=== PATIENT | male | born 1955 | race Caucasian/White ===

== ENCOUNTER 2021-07-17 12:47 | Inpatient (IN) ==
[2021-07-17 13:43] LABS: Basophils % 0.4 % (0.0-0.8); Eosinophils # 0.1 10*3/uL (0.0-0.87); Eosinophils % 1.8 % (0.00-10.9); Hematocrit 39.8 VOL% (42.0-52.0); Hemoglobin 13.1 GM/DL (14.0-18.0); Immature Granulocytes % 0.7 %; Immature Granulocytes Absolute 0.05 #; Lymphocytes # 1.8 10*3/uL (1.4-4.0); Mean Corpuscular HGB Conc 32.9 GM/DL (32-36); Mean Corpuscular Volume 87.1 FL (87-102); Mean Platelet Volume 9.9 FL (9.6-12.0); Monocytes # 0.5 10*3/uL (0.11-0.8); Monocytes % 7.1 % (1.7-12.7); Platelet Count 232 T/CUMM (130-400); Red Blood Count 4.57 MC/CUMM (3.8-5.5); Red Cell Distribution Width 12.5 % (9.3-17.3); White Blood Count 6.8 T/CUMM (4-12)
[2021-07-17 13:52] LABS: PT Patient Result 11.4 SECS (10.5-12.0); Partial Thromboplastin Time 23.9 SECS (23.8-32.1)
[2021-07-17 14:02] LABS: Alanine Aminotransferase 32 U/L (16-61); Albumin 3.8 G/DL (3.4-5.0); Alkaline Phosphatase 41 U/L (45-117); Aspartate Amino Transferase 20 U/L (0-37); Bilirubin,Total < 0.39 MG/DL (0.20-1.00); Blood Urea Nitrogen 23 MG/DL (7-18); Carbon Dioxide 29 MMOL/L (21-32); Chloride 106 MMOL/L (98-107); Estimated Glom Filtration Rate 50 ML/MIN; Glucose 120 MG/DL (74-106); Osmolality,Calculated 285.3 MOS/KG (273-304); Potassium 3.8 MMOL/L (3.5-5.1); Sodium 141 MMOL/L (136-145); Total Protein 8.1 G/DL (6.4-8.2)
[2021-07-17] MEDS ORDERED: ALBUTEROL 2.5 MG/3 ML NEB RESP TX PRN (16:39)
[2021-07-17] MEDS ORDERED: ONDANSETRON 4 MG/2 ML VIAL IV PRN (16:39)
[2021-07-17] MEDS ORDERED: ACETAMINOPHEN 325 MG TABLET PO PRN (16:39)
[2021-07-17] MEDS ORDERED: GLUCAGON 1 MG VIAL IM PRN (16:39)
[2021-07-17] MEDS ORDERED: hydrALAZINE 20 MG/1 ML VIAL IV PRN (16:39)
[2021-07-17] MEDS ORDERED: ASPIRIN 325 MG TABLET PO STA (16:42)
[2021-07-17] MEDS ORDERED: DEXTROSE 10% 250 ML BAG IV PRN (16:49)
[2021-07-17] MEDS ORDERED: LACTATED RINGERS 1,000 ML IV SCH (17:00)
[2021-07-17] MEDS: ENOXAPARIN 40 MG/0.4 ML SYRINGE SUBCUT SCH (17:11)
[2021-07-17] MEDS: LACTATED RINGERS 1,000 ML IV SCH (17:12)
[2021-07-17] MEDS: ACETYLCYSTEINE 600 MG CAPSULE PO SCH (21:46)
[2021-07-18 04:44] LABS: Basophils % 0.5 % (0.0-0.8); Eosinophils # 0.2 10*3/uL (0.0-0.87); Eosinophils % 2.9 % (0.00-10.9); Hematocrit 33.9 VOL% (42.0-52.0); Hemoglobin 11.1 GM/DL (14.0-18.0); Immature Granulocytes % 0.5 %; Immature Granulocytes Absolute 0.03 #; Lymphocytes # 2.1 10*3/uL (1.4-4.0); Lymphocytes % 36.3 % (21.2-54.2); Mean Corpuscular HGB Conc 32.7 GM/DL (32-36); Mean Corpuscular Volume 87.8 FL (87-102); Monocytes # 0.4 10*3/uL (0.11-0.8); Neutrophils % 52.8 % (38.7-73.9); Platelet Count 173 T/CUMM (130-400); Red Blood Count 3.86 MC/CUMM (3.8-5.5); Red Cell Distribution Width 12.7 % (9.3-17.3); White Blood Count 5.9 T/CUMM (4-12)
[2021-07-18 05:16] LABS: Alanine Aminotransferase 23 U/L (16-61); Albumin 2.8 G/DL (3.4-5.0); Alkaline Phosphatase 34 U/L (45-117); Aspartate Amino Transferase 14 U/L (0-37); Bilirubin,Total < 0.39 MG/DL (0.20-1.00); Blood Urea Nitrogen 21 MG/DL (7-18); Calcium 8.7 MG/DL (8.5-10.1); Carbon Dioxide 26 MMOL/L (21-32); Chloride 108 MMOL/L (98-107); Cholesterol 192 MG/DL (50-200); Estimated Glom Filtration Rate 54 ML/MIN; Glucose 130 MG/DL (74-106); HDL Cholesterol 20 MG/DL (40-60); Osmolality,Calculated 283.4 MOS/KG (273-304); Potassium 3.9 MMOL/L (3.5-5.1); Sodium 140 MMOL/L (136-145); Total Protein 6.2 G/DL (6.4-8.2); Triglycerides 237 MG/DL (2-150); VLDL Cholesterol 47.4 MG/DL
[2021-07-18] MEDS: LACTATED RINGERS 1,000 ML IV SCH ×3 (08:04→17:18)
[2021-07-18] MEDS: ACETYLCYSTEINE 600 MG CAPSULE PO SCH ×2 (08:59→22:09)
[2021-07-18] MEDS: PANTOPRAZOLE 40 MG TABLET PO SCH (08:59)
[2021-07-18] MEDS: CETIRIZINE 10 MG TABLET PO SCH (09:00)
[2021-07-18] MEDS: FENOFIBRATE 145 MG TABLET PO SCH (09:00)
[2021-07-18] MEDS: ASPIRIN EC 81 MG TABLET PO SCH (09:00)
[2021-07-18] MEDS: carvediloL 3.125 MG TABLET PO SCH ×2 (10:46→22:09)
[2021-07-18] MEDS: ENOXAPARIN 40 MG/0.4 ML SYRINGE SUBCUT SCH (16:59)
[2021-07-19 04:42] LABS: Basophils % 0.8 % (0.0-0.8); Eosinophils # 0.2 10*3/uL (0.0-0.87); Eosinophils % 3.2 % (0.00-10.9); Hematocrit 33.2 VOL% (42.0-52.0); Immature Granulocytes % 0.4 %; Immature Granulocytes Absolute 0.02 #; Lymphocytes # 1.6 10*3/uL (1.4-4.0); Lymphocytes % 34.6 % (21.2-54.2); Mean Corpuscular HGB Conc 33.1 GM/DL (32-36); Mean Corpuscular Volume 87.8 FL (87-102); Mean Platelet Volume 9.8 FL (9.6-12.0); Monocytes # 0.5 10*3/uL (0.11-0.8); Monocytes % 9.5 % (1.7-12.7); Neutrophils % 51.5 % (38.7-73.9); Platelet Count 161 T/CUMM (130-400); Red Blood Count 3.78 MC/CUMM (3.8-5.5); Red Cell Distribution Width 12.7 % (9.3-17.3); White Blood Count 4.7 T/CUMM (4-12)
[2021-07-19 05:03] LABS: Calcium 9.3 MG/DL (8.5-10.1); Osmolality,Calculated 290.1 MOS/KG (273-304); Potassium 4.6 MMOL/L (3.5-5.1)
[2021-07-19] MEDS: FENOFIBRATE 145 MG TABLET PO SCH (08:26)
[2021-07-19] MEDS: carvediloL 3.125 MG TABLET PO SCH ×2 (08:27→20:47)
[2021-07-19] MEDS: ACETYLCYSTEINE 600 MG CAPSULE PO SCH ×2 (08:27→20:47)
[2021-07-19] MEDS: CETIRIZINE 10 MG TABLET PO SCH (08:27)
[2021-07-19] MEDS: ASPIRIN EC 81 MG TABLET PO SCH (08:27)
[2021-07-19] MEDS: PANTOPRAZOLE 40 MG TABLET PO SCH (08:27)
[2021-07-19] MEDS: LACTATED RINGERS 1,000 ML IV SCH ×3 (11:15→17:22)
[2021-07-19] MEDS ORDERED: diphenhydrAMINE CAP 50 MG CAPSULE PO ONE (13:30)
[2021-07-19] MEDS ORDERED: DIAZEPAM 5 MG TABLET PO ONE (13:30)
[2021-07-19] MEDS ORDERED: HEPARIN/NACL 0.9% 2 UNITS/ML 2,000 UNIT/1,000 ML BAG IV ONE (13:52)
[2021-07-19] MEDS ORDERED: NITROGLYCERIN DRIP 50 MG/250 ML BOTTLE IV ONE (13:52)
[2021-07-19] MEDS ORDERED: VERAPAMIL 5 MG/2 ML VIAL ONE (13:52)
[2021-07-19] MEDS ORDERED: MIDAZOLAM 2 MG/2 ML VIAL ONE (14:25)
[2021-07-19] MEDS ORDERED: fentaNYL 100 MCG/2 ML VIAL ONE (14:25)
[2021-07-19] MEDS ORDERED: ENOXAPARIN 60 MG/0.6 ML SYRINGE ONE (14:45)
[2021-07-19] MEDS ORDERED: NITROGLYCERIN SL 0.4 MG TABLET SL PRN (15:23)
[2021-07-19] MEDS ORDERED: DEXTROSE 5% NACL 0.45% 1,000 ML IV SCH (15:30)
[2021-07-19] MEDS: ROSUVASTATIN 20 MG TABLET PO SCH (20:47)
[2021-07-20] MEDS: LACTATED RINGERS 1,000 ML IV SCH ×2 (00:47→06:39)
[2021-07-20 06:06] LABS: Basophils % 0.7 % (0.0-0.8); Eosinophils # 0.2 10*3/uL (0.0-0.87); Eosinophils % 4.1 % (0.00-10.9); Hematocrit 32.2 VOL% (42.0-52.0); Hemoglobin 10.8 GM/DL (14.0-18.0); Immature Granulocytes % 0.2 %; Immature Granulocytes Absolute 0.01 #; Lymphocytes # 1.3 10*3/uL (1.4-4.0); Mean Corpuscular HGB Conc 33.5 GM/DL (32-36); Mean Corpuscular Volume 87.5 FL (87-102); Monocytes # 0.5 10*3/uL (0.11-0.8); Platelet Count 152 T/CUMM (130-400); Red Blood Count 3.68 MC/CUMM (3.8-5.5); Red Cell Distribution Width 12.6 % (9.3-17.3); White Blood Count 4.6 T/CUMM (4-12)
[2021-07-20 06:23] LABS: Calcium 8.8 MG/DL (8.5-10.1); Osmolality,Calculated 283.4 MOS/KG (273-304)
[2021-07-20] MEDS ORDERED: DEXTROSE 10% 25 GM/250 ML BAG IV PRN (08:36)
[2021-07-20] MEDS: FENOFIBRATE 145 MG TABLET PO SCH (09:21)
[2021-07-20] MEDS: PANTOPRAZOLE 40 MG TABLET PO SCH (09:21)
[2021-07-20] MEDS: ISOSORBIDE MONONITRATE 30 MG TABLET PO SCH (09:22)
[2021-07-20] MEDS: ACETYLCYSTEINE 600 MG CAPSULE PO SCH ×2 (09:22→21:05)
[2021-07-20] MEDS: hydrALAZINE 25 MG TABLET PO SCH ×3 (09:22→21:11)
[2021-07-20] MEDS: ASPIRIN EC 81 MG TABLET PO SCH (09:22)
[2021-07-20] MEDS: carvediloL 3.125 MG TABLET PO SCH ×2 (09:22→21:05)
[2021-07-20] MEDS: CETIRIZINE 10 MG TABLET PO SCH (09:22)
[2021-07-20] MEDS: CHLORHEXIDINE 0.12% ORAL RINSE 60 ML BOTTLE SWISH/SPIT SCH ×2 (09:25→21:12)
[2021-07-20 09:43] LABS: Arterial Base Excess iSTAT -1 MMOL/L (-2.5-2.5); Arterial Bicarbonate iSTAT 24.1 MMOL/L (20-26); Arterial O2 Saturation iSTAT 98 % (95-100); Arterial PCO2 iSTAT 39 MM HG (35-48); Arterial PO2 iSTAT 96 MM HG (80-95); Arterial Total CO2 iSTAT 25 MMO/L (23-27); Arterial pH iSTAT 7.404 (7.35-7.45)
[2021-07-20] MEDS ORDERED: MORPHINE 2 MG/1 ML SYRINGE IV PRN (09:59)
[2021-07-20] MEDS ORDERED: CLORAZEPATE 3.75 MG TABLET PO PRN (09:59)
[2021-07-20] MEDS: CHLORHEXIDINE 4% SOLN 118 ML BOTTLE TOP SCH ×2 (15:40→21:12)
[2021-07-20] MEDS: ROSUVASTATIN 20 MG TABLET PO SCH (21:05)
[2021-07-21] MEDS ORDERED: PAPAVERINE 60 MG/2 ML VIAL ONE (04:14)
[2021-07-21] MEDS ORDERED: VANCOMYCIN 1,000 MG VIAL ONE (04:15)
[2021-07-21] MEDS ORDERED: VANCOMYCIN 500 MG VIAL ONE (04:15)
[2021-07-21] MEDS ORDERED: CEFUROXIME INJ 1,500 MG in SODIUM CHLORIDE 0.9% 100 ML IV ONE (05:00)
[2021-07-21] MEDS: CHLORHEXIDINE 4% SOLN 118 ML BOTTLE TOP SCH (05:03)
[2021-07-21] MEDS ORDERED: DIAZEPAM 5 MG TABLET PO ONE (05:30)
[2021-07-21] MEDS ORDERED: ETOMIDATE 40 MG/20 ML VIAL IV ONE (05:37)
[2021-07-21] MEDS ORDERED: AMINOCAPROIC ACID 5,000 MG/20 ML VIAL ONE (05:37)
[2021-07-21] MEDS ORDERED: LACTATED RINGERS 1,000 ML IV ONE (05:37)
[2021-07-21] MEDS ORDERED: SODIUM CHLORIDE 0.9% 250 ML IV ONE ×2 (05:37→06:11)
[2021-07-21] MEDS ORDERED: SODIUM CHLORIDE 0.9% 100 ML IV ONE (05:37)
[2021-07-21] MEDS ORDERED: LIDOCAINE 2% 5 ML VIAL ONE ×2 (05:37→11:54)
[2021-07-21] MEDS ORDERED: SODIUM CHLORIDE 0.9% 1,000 ML IV ONE (05:37)
[2021-07-21] MEDS ORDERED: VECURONIUM 10 MG VIAL IV ONE (05:37)
[2021-07-21] MEDS ORDERED: SUFentanil 250 MCG/5 ML AMP ONE ×3 (05:38)
[2021-07-21] MEDS ORDERED: MIDAZOLAM 10 MG/2 ML VIAL ONE ×4 (05:38→06:12)
[2021-07-21 06:01] LABS: Basophils % 0.4 % (0.0-0.8); Eosinophils # 0.1 10*3/uL (0.0-0.87); Eosinophils % 1.5 % (0.00-10.9); Hematocrit 33.8 VOL% (42.0-52.0); Hemoglobin 11.3 GM/DL (14.0-18.0); Immature Granulocytes % 0.4 %; Immature Granulocytes Absolute 0.03 #; Lymphocytes # 1.4 10*3/uL (1.4-4.0); Lymphocytes % 16.9 % (21.2-54.2); Mean Corpuscular HGB Conc 33.4 GM/DL (32-36); Mean Corpuscular Volume 87.6 FL (87-102); Mean Platelet Volume 10.5 FL (9.6-12.0); Monocytes # 0.7 10*3/uL (0.11-0.8); Monocytes % 8.7 % (1.7-12.7); Neutrophils % 72.1 % (38.7-73.9); Platelet Count 174 T/CUMM (130-400); Red Blood Count 3.86 MC/CUMM (3.8-5.5); Red Cell Distribution Width 12.7 % (9.3-17.3); White Blood Count 8.1 T/CUMM (4-12)
[2021-07-21] MEDS ORDERED: EPINEPHrine 1 MG/ML VIAL ONE (06:11)
[2021-07-21] MEDS ORDERED: NITROGLYCERIN DRIP 50 MG/250 ML BOTTLE IV ONE ×2 (06:11→12:08)
[2021-07-21 06:17] LABS: Calcium 9.3 MG/DL (8.5-10.1); Osmolality,Calculated 280.5 MOS/KG (273-304); Potassium 4.6 MMOL/L (3.5-5.1)
[2021-07-21 07:50] LABS: ABG Base Excess -1.6 MMOL/L (-2.5-2.5); ABG HCO3 22.1 MMOL/L (20-26); ABG Oxygen Saturation 98.9 % (95-100); ABG PCO2 33.8 MM HG (35-48); ABG PH 7.433 (7.35-7.45); ABG PO2 408.6 MM HG (80-95); ABG TCO2 23.1 MMOL/L (23-27); Glucose Heart Surgery 112 MG/DL (74-106); Hemoglobin Heart Surgery 11.1 G/DL (14.0-18.0); Ionized Calcium Arterial 1.15 MMOL/L (1.21-1.46); PCO2 Patient Temp Arterial 33.8 MMHG; PH Patient Temp Arterial 7.433; PO2 Patient Temp Arterial 408.6 MM HG; Patient Temperature 37 CELCIUS; Potassium Heart/CVR 4.1 MMOL/L (3.5-5.1); Sodium Heart/CVR 137 MMOL/L (135-145)
[2021-07-21 07:54] LABS: Mucus,Urine Occasional /LPF (Occasional); RBC,Urine 2 /HPF (0-4); Urine Appearance Clear (Clear); Urine Color Yellow (Yellow)
[2021-07-21 07:55] LABS: Bilirubin,Urine Negative (Negative); Blood, Urine Negative (Negative); Glucose,Urine (UA) Negative (Negative); Ketones,Urine Negative (Negative); Nitrite,Urine Negative (Negative); Protein,Urine Negative (Negative); Urine Urobilinogen 0.2 eU/dL (<2.0)
[2021-07-21] MEDS ORDERED: SODIUM BICARBONATE 50 MEQ/50 ML VIAL IV ONE (08:41)
[2021-07-21] MEDS ORDERED: NITROPRUSSIDE 50 MG/2 ML VIAL ONE (08:41)
[2021-07-21] MEDS ORDERED: POTASSIUM CHLORIDE RIDER 20 MEQ/100 ML PREMIX IV ONE (08:41)
[2021-07-21] MEDS ORDERED: PHENYLEPHRINE DRIP 40 MG/250 ML PREMIX IV ONE (08:42)
[2021-07-21] MEDS ORDERED: CALCIUM CHLORIDE 1,000 MG/10 ML SYRINGE IV ONE (08:42)
[2021-07-21] MEDS ORDERED: ALBUMIN 5% 12.5 GM/250 ML VIAL IV ONE ×2 (08:43→08:45)
[2021-07-21] MEDS ORDERED: EPINEPHrine 1 MG/10 ML SYRINGE ONE (08:44)
[2021-07-21] MEDS ORDERED: ATROPINE 1 MG/10 ML SYRINGE ONE (08:44)
[2021-07-21] MEDS ORDERED: LIDOCAINE 100 MG/5 ML SYRINGE ONE (08:44)
[2021-07-21 08:59] LABS: Hemoglobin Heart Surgery 7.6 G/DL (14.0-18.0); PCO2 Patient Temp Venous 36.9 MM HG; PH Patient Temp Venous 7.425; PO2 Patient Temp Venous 43.5 MM HG; Potassium Heart/CVR 4.7 MMOL/L (3.5-5.1); VBG Base Excess -0.6 MEQ/L (0-4); VBG HCO3 23.7 MEQ/L (24-28); VBG Oxygen Saturation 80.2 %; VBG PCO2 36.9 MMHG (41-51); VBG PH 7.425; VBG PO2 43.5 MMHG (17-40); VBG Total CO2 24.8 MMOL/L
[2021-07-21 09:31] LABS: Hemoglobin Heart Surgery 7.9 G/DL (14.0-18.0); PCO2 Patient Temp Venous 33.3 MM HG; PH Patient Temp Venous 7.45; PO2 Patient Temp Venous 34.8 MM HG; Potassium Heart/CVR 5.2 MMOL/L (3.5-5.1); VBG Base Excess -1.2 MEQ/L (0-4); VBG Oxygen Saturation 76.8 %; VBG PCO2 36.3 MMHG (41-51); VBG PH 7.42; VBG PO2 40.1 MMHG (17-40); VBG Total CO2 24.1 MMOL/L
[2021-07-21 10:15] LABS: Glucose Heart Surgery 200 MG/DL (74-106); Hematocrit Heart Surgery 24.9 PERCENT (42-52); Patient Temperature 37 CELCIUS; Potassium Heart/CVR 4.5 MMOL/L (3.5-5.1); Sodium Heart/CVR 132 MMOL/L (135-145)
[2021-07-21] MEDS ORDERED: SEVOFLURANE 1 UNIT/15 MINUTE INH ONE (10:18)
[2021-07-21] MEDS ORDERED: PROTAMINE SULFATE 50 MG/5 ML VIAL IV ONE ×2 (10:18→11:56)
[2021-07-21] MEDS ORDERED: CALCIUM CHLORIDE 1,000 MG/10 ML VIAL IV ONE (10:18)
[2021-07-21] MEDS ORDERED: CHLORHEXIDINE 4% SOLN 118 ML BOTTLE TOP PRN (11:20)
[2021-07-21] MEDS ORDERED: CALCIUM CHLORIDE 1,000 MG/10 ML SYRINGE IV PRN (11:20)
[2021-07-21] MEDS ORDERED: MIDAZOLAM 2 MG/2 ML VIAL IV PRN (11:20)
[2021-07-21] MEDS ORDERED: INSULIN REGULAR 100 UNIT/ML IV ONE (11:20)
[2021-07-21] MEDS ORDERED: LACTATED RINGERS 250 ML IV PRN (11:20)
[2021-07-21] MEDS ORDERED: ONDANSETRON 4 MG/2 ML VIAL IV PRN (11:20)
[2021-07-21] MEDS ORDERED: DEXTROSE 10% 250 ML BAG IV PRN ×2 (11:20→11:22)
[2021-07-21] MEDS ORDERED: PHENYLEPHRINE DRIP 40 MG/250 ML PREMIX IV PRN (11:20)
[2021-07-21] MEDS ORDERED: NITROPRUSSIDE 100 MG in DEXTROSE 5% 250 ML IV PRN (11:20)
[2021-07-21] MEDS ORDERED: INSULIN REGULAR 100 UNIT/ML IV PRN (11:20)
[2021-07-21] MEDS ORDERED: ACETAMINOPHEN 650 MG SUPP RECTAL PRN (11:20)
[2021-07-21] MEDS ORDERED: MAGNESIUM SULF RIDER 2 GM/50 ML PREMIX IV PRN (11:20)
[2021-07-21] MEDS ORDERED: VECURONIUM 10 MG VIAL IV PRN ×2 (11:20)
[2021-07-21] MEDS ORDERED: MAGNESIUM SULF RIDER 4 GM/100 ML PREMIX IV PRN (11:20)
[2021-07-21] MEDS ORDERED: ALBUMIN 5% 12.5 GM/250 ML VIAL IV PRN (11:20)
[2021-07-21] MEDS ORDERED: MIDAZOLAM 10 MG/2 ML VIAL IV PRN (11:20)
[2021-07-21 11:30] LABS: ABG Base Excess -1.9 MMOL/L (-2.5-2.5); ABG HCO3 22.9 MMOL/L (20-26); ABG PCO2 39.3 MM HG (35-48); ABG PH 7.376 (7.35-7.45); ABG TCO2 21.6 MMOL/L (23-27); PCO2 Patient Temp Arterial 39.3 MMHG; PH Patient Temp Arterial 7.376
[2021-07-21] MEDS ORDERED: INSULIN REGULAR DRIP 100 ML IV SCH (11:30)
[2021-07-21] MEDS ORDERED: SODIUM CHLORIDE 0.45% 1,000 ML IV SCH ×2 (11:30)
[2021-07-21 11:33] LABS: Basophils % 0.2 % (0.0-0.8); Eosinophils # 0.1 10*3/uL (0.0-0.87); Eosinophils % 1.2 % (0.00-10.9); Hematocrit 25.6 VOL% (42.0-52.0); Hemoglobin 8.6 GM/DL (14.0-18.0); Immature Granulocytes % 0.5 %; Immature Granulocytes Absolute 0.03 #; Lymphocytes # 0.8 10*3/uL (1.4-4.0); Lymphocytes % 11.7 % (21.2-54.2); Mean Corpuscular HGB Conc 33.6 GM/DL (32-36); Mean Corpuscular Volume 87.1 FL (87-102); Monocytes # 0.6 10*3/uL (0.11-0.8); Monocytes % 9.3 % (1.7-12.7); Neutrophils % 77.1 % (38.7-73.9); Platelet Count 130 T/CUMM (130-400); Red Blood Count 2.94 MC/CUMM (3.8-5.5); Red Cell Distribution Width 12.6 % (9.3-17.3); White Blood Count 6.4 T/CUMM (4-12)
[2021-07-21 11:38] LABS: ABG Base Excess -1.9 MMOL/L (-2.5-2.5); ABG HCO3 22.8 MMOL/L (20-26); ABG PCO2 43.9 MM HG (35-48); ABG PH 7.342 (7.35-7.45); ABG TCO2 22.1 MMOL/L (23-27); Glucose Heart Surgery 160 MG/DL (74-106); Hematocrit Heart Surgery 27.2 PERCENT (42-52); Hemoglobin Heart Surgery 8.7 G/DL (14.0-18.0); Potassium Heart/CVR 3.8 MMOL/L (3.5-5.1)
[2021-07-21 11:43] LABS: INR 1.2; PT Patient Result 13.5 SECS (10.5-12.0); Partial Thromboplastin Time 27.4 SECS (23.8-32.1)
[2021-07-21] MEDS ORDERED: ALBUMIN 25% 25 GM/100 ML VIAL IV ONE (11:54)
[2021-07-21] MEDS ORDERED: methylPREDNISolone SOD SUC 1,000 MG/8 ML VIAL ONE (11:54)
[2021-07-21] MEDS ORDERED: MAGNESIUM SULFATE 5 GM/10 ML VIAL IV ONE (11:54)
[2021-07-21 11:55] LABS: CKMB % 8.69 %
[2021-07-21] MEDS ORDERED: DEXTROSE 5% KCL 20 MEQ 20 MEQ/1,000 ML BAG IV ONE (11:55)
[2021-07-21] MEDS ORDERED: PROTAMINE SULFATE 250 MG/25 ML VIAL IV ONE (11:55)
[2021-07-21] MEDS ORDERED: FUROSEMIDE 20 MG/2 ML VIAL ONE (11:56)
[2021-07-21] MEDS ORDERED: HEPARIN 10,000 UNIT/10 ML VIAL ONE (11:56)
[2021-07-21] MEDS ORDERED: MANNITOL 12.5 GM/50 ML VIAL IV ONE (11:56)
[2021-07-21] MEDS ORDERED: POTASSIUM CHLORIDE 20 MEQ/10 ML VIAL ONE (11:57)
[2021-07-21 12:01] LABS: Albumin 3.1 G/DL (3.4-5.0); Bilirubin,Total 0.6 MG/DL (0.20-1.00); Calcium 8.9 MG/DL (8.5-10.1); High Sensitive Troponin I* 2354.3 ng/L (0-78); Total Protein 5.4 G/DL (6.4-8.2)
[2021-07-21] MEDS: POTASSIUM CHLORIDE RIDER 20 MEQ/100 ML PREMIX IV PRN ×2 (12:02→20:24)
[2021-07-21] MEDS ORDERED: NITROGLYCERIN DRIP 50 MG/250 ML BOTTLE IV PRN (12:06)
[2021-07-21] MEDS: POTASSIUM CHLORIDE RIDER 10 MEQ/100 ML PREMIX IV PRN ×3 (12:35→21:27)
[2021-07-21] MEDS: LACTATED RINGERS 1,000 ML IV PRN ×3 (13:00→17:00)
[2021-07-21 15:48] LABS: ABG Base Excess -2.5 MMOL/L (-2.5-2.5); ABG HCO3 22.4 MMOL/L (20-26); ABG Oxygen Saturation 98.5 % (95-100); ABG PCO2 43.6 MM HG (35-48); ABG PH 7.337 (7.35-7.45); ABG TCO2 21.3 MMOL/L (23-27); Glucose Heart Surgery 182 MG/DL (74-106); Hematocrit Heart Surgery 32.1 PERCENT (42-52); Hemoglobin Heart Surgery 10.4 G/DL (14.0-18.0); Potassium Heart/CVR 4.7 MMOL/L (3.5-5.1)
[2021-07-21] MEDS: MORPHINE 10 MG/1 ML VIAL IV PRN ×4 (16:50→23:09)
[2021-07-21 17:12] LABS: ABG Base Excess -4.1 MMOL/L (-2.5-2.5); ABG HCO3 20.9 MMOL/L (20-26); ABG Oxygen Saturation 95.1 % (95-100); ABG PCO2 45.4 MM HG (35-48); ABG PH 7.299 (7.35-7.45); ABG PO2 82.8 MM HG (80-95); ABG TCO2 20.5 MMOL/L (23-27); Glucose Heart Surgery 203 MG/DL (74-106); Hematocrit Heart Surgery 31.4 PERCENT (42-52); Hemoglobin Heart Surgery 10.2 G/DL (14.0-18.0); Potassium Heart/CVR 4.7 MMOL/L (3.5-5.1)
[2021-07-21] MEDS ORDERED: FUROSEMIDE 40 MG/4 ML VIAL IV ONE (18:17)
[2021-07-21 19:22] LABS: ABG Base Excess -3.3 MMOL/L (-2.5-2.5); ABG HCO3 21.6 MMOL/L (20-26); ABG PH 7.343 (7.35-7.45); ABG PO2 77.9 MM HG (80-95); ABG TCO2 20.3 MMOL/L (23-27); Glucose Heart Surgery 216 MG/DL (74-106); Hematocrit Heart Surgery 30.9 PERCENT (42-52); Potassium Heart/CVR 4.4 MMOL/L (3.5-5.1)
[2021-07-21] MEDS: CEFUROXIME INJ 1,500 MG in SODIUM CHLORIDE 0.9% 100 ML IV SCH (19:44)
[2021-07-21 20:10] LABS: ABG Base Excess -4.4 MMOL/L (-2.5-2.5); ABG HCO3 21.2 MMOL/L (20-26); ABG Oxygen Saturation 96.9 % (95-100); ABG PH 7.332 (7.35-7.45); ABG PO2 103.9 MM HG (80-95); ABG TCO2 22.5 MMOL/L (23-27); Glucose Heart Surgery 194 MG/DL (74-106); Hemoglobin Heart Surgery 10.7 G/DL (14.0-18.0); Potassium Heart/CVR 4.3 MMOL/L (3.5-5.1)
[2021-07-21] MEDS: CHLORHEXIDINE 0.12% ORAL RINSE 60 ML BOTTLE SWISH/SPIT SCH ×2 (20:26→21:39)
[2021-07-21 20:30] LABS: CKMB % 7.62 %
[2021-07-21 20:32] LABS: High Sensitive Troponin I* 6003.9 ng/L (0-78)
[2021-07-21 21:10] LABS: ABG Base Excess -4.1 MMOL/L (-2.5-2.5); ABG Oxygen Saturation 98.3 % (95-100); ABG PCO2 40.2 MM HG (35-48); ABG PH 7.335 (7.35-7.45); ABG TCO2 19.7 MMOL/L (23-27); Glucose Heart Surgery 189 MG/DL (74-106); Hematocrit Heart Surgery 30.1 PERCENT (42-52); Hemoglobin Heart Surgery 9.7 G/DL (14.0-18.0); Potassium Heart/CVR 4.6 MMOL/L (3.5-5.1)
[2021-07-21] MEDS: hydrALAZINE 25 MG TABLET PO SCH (21:38)
[2021-07-21] MEDS: SODIUM CHLORIDE 0.9% 1,000 ML IV SCH (21:38)
[2021-07-21] MEDS: ACETYLCYSTEINE 600 MG CAPSULE PO SCH (21:39)
[2021-07-21] MEDS: carvediloL 3.125 MG TABLET PO SCH (21:39)
[2021-07-21] MEDS: ASPIRIN EC 81 MG TABLET PO SCH (21:39)
[2021-07-21] MEDS: ISOSORBIDE MONONITRATE 30 MG TABLET PO SCH (21:39)
[2021-07-21] MEDS: PANTOPRAZOLE 40 MG TABLET PO SCH (21:40)
[2021-07-21] MEDS: CETIRIZINE 10 MG TABLET PO SCH (21:40)
[2021-07-21] MEDS: FENOFIBRATE 145 MG TABLET PO SCH (21:40)
[2021-07-21 23:05] LABS: ABG Base Excess -2.4 MMOL/L (-2.5-2.5); ABG HCO3 22.4 MMOL/L (20-26); ABG Oxygen Saturation 97.3 % (95-100); ABG PCO2 40.1 MM HG (35-48); ABG PH 7.363 (7.35-7.45); ABG PO2 93.6 MM HG (80-95); ABG TCO2 20.7 MMOL/L (23-27); Glucose Heart Surgery 181 MG/DL (74-106); Hematocrit Heart Surgery 32.3 PERCENT (42-52); Hemoglobin Heart Surgery 10.5 G/DL (14.0-18.0)
[2021-07-22 01:15] LABS: ABG Base Excess -2.2 MMOL/L (-2.5-2.5); ABG HCO3 22.6 MMOL/L (20-26); ABG PCO2 40.8 MM HG (35-48); ABG PH 7.361 (7.35-7.45); ABG PO2 92.4 MM HG (80-95); ABG TCO2 20.9 MMOL/L (23-27); Glucose Heart Surgery 172 MG/DL (74-106); Hematocrit Heart Surgery 32.9 PERCENT (42-52); Hemoglobin Heart Surgery 10.6 G/DL (14.0-18.0); Potassium Heart/CVR 4.8 MMOL/L (3.5-5.1)
[2021-07-22] MEDS: MORPHINE 10 MG/1 ML VIAL IV PRN ×3 (01:20→08:25)
[2021-07-22 02:42] LABS: ABG Base Excess -1.3 MMOL/L (-2.5-2.5); ABG HCO3 23.3 MMOL/L (20-26); ABG Oxygen Saturation 97.2 % (95-100); ABG PCO2 43.4 MM HG (35-48); ABG PH 7.357 (7.35-7.45); ABG PO2 96.7 MM HG (80-95); ABG TCO2 21.5 MMOL/L (23-27); Glucose Heart Surgery 176 MG/DL (74-106); Hematocrit Heart Surgery 38.9 PERCENT (42-52); Hemoglobin Heart Surgery 12.7 G/DL (14.0-18.0); Potassium Heart/CVR 4.7 MMOL/L (3.5-5.1)
[2021-07-22 04:16] LABS: Basophils % 0.2 % (0.0-0.8); Hematocrit 30.4 VOL% (42.0-52.0); Immature Granulocytes % 0.7 %; Immature Granulocytes Absolute 0.08 #; Lymphocytes # 0.7 10*3/uL (1.4-4.0); Lymphocytes % 5.4 % (21.2-54.2); Mean Corpuscular HGB Conc 34.2 GM/DL (32-36); Mean Corpuscular Volume 85.4 FL (87-102); Mean Platelet Volume 10.6 FL (9.6-12.0); Monocytes # 1.1 10*3/uL (0.11-0.8); Monocytes % 8.6 % (1.7-12.7); Neutrophils % 85.1 % (38.7-73.9); Red Cell Distribution Width 13.1 % (9.3-17.3)
[2021-07-22 04:19] LABS: Hemoglobin 10.4 GM/DL (14.0-18.0); Platelet Count 171 T/CUMM (130-400); Red Blood Count 3.56 MC/CUMM (3.8-5.5); White Blood Count 12.2 T/CUMM (4-12)
[2021-07-22 04:20] LABS: ABG Base Excess -0.2 MMOL/L (-2.5-2.5); ABG HCO3 24.3 MMOL/L (20-26); ABG Oxygen Saturation 97.7 % (95-100); ABG PCO2 33.6 MM HG (35-48); ABG PH 7.447 (7.35-7.45); ABG PO2 94.2 MM HG (80-95); ABG TCO2 20.6 MMOL/L (23-27); Glucose Heart Surgery 173 MG/DL (74-106); Hematocrit Heart Surgery 35.8 PERCENT (42-52); Hemoglobin Heart Surgery 11.6 G/DL (14.0-18.0); Potassium Heart/CVR 4.7 MMOL/L (3.5-5.1)
[2021-07-22 04:34] LABS: Alanine Aminotransferase 43 U/L (16-61); Albumin 3.3 G/DL (3.4-5.0); Alkaline Phosphatase 28 U/L (45-117); Aspartate Amino Transferase 75 U/L (0-37); Bilirubin,Direct < 0.100 MG/DL (0.0-0.20); Bilirubin,Total < 0.39 MG/DL (0.20-1.00); Blood Urea Nitrogen 24 MG/DL (7-18); Calcium 8.8 MG/DL (8.5-10.1); Carbon Dioxide 25 MMOL/L (21-32); Chloride 107 MMOL/L (98-107); Estimated Glom Filtration Rate 53 ML/MIN; Glucose 155 MG/DL (74-106); Osmolality,Calculated 283.5 MOS/KG (273-304); Potassium 4.8 MMOL/L (3.5-5.1); Sodium 139 MMOL/L (136-145); Total Protein 5.9 G/DL (6.4-8.2)
[2021-07-22 04:35] LABS: CKMB % 6.97 %
[2021-07-22 04:38] LABS: High Sensitive Troponin I* 9561.9 ng/L (0-78)
[2021-07-22 05:16] LABS: ABG HCO3 23.5 MMOL/L (20-26); ABG Oxygen Saturation 96.2 % (95-100); ABG PCO2 42.1 MM HG (35-48); ABG PH 7.369 (7.35-7.45); ABG PO2 85.3 MM HG (80-95); ABG TCO2 22.1 MMOL/L (23-27); Glucose Heart Surgery 166 MG/DL (74-106); Potassium Heart/CVR 4.5 MMOL/L (3.5-5.1)
[2021-07-22 06:12] LABS: ABG Base Excess -0.5 MMOL/L (-2.5-2.5); ABG Oxygen Saturation 94.5 % (95-100); ABG PCO2 38.9 MM HG (35-48); ABG PH 7.409 (7.35-7.45); ABG PO2 76.5 MM HG (80-95); ABG TCO2 25.2 MMOL/L (23-27); Glucose Heart Surgery 146 MG/DL (74-106); Hemoglobin Heart Surgery 10.7 G/DL (14.0-18.0); Potassium Heart/CVR 4.4 MMOL/L (3.5-5.1)
[2021-07-22] MEDS: CEFUROXIME INJ 1,500 MG in SODIUM CHLORIDE 0.9% 100 ML IV SCH (06:30)
[2021-07-22] MEDS ORDERED: INSULIN REGULAR 100 UNIT/ML SUBCUT SCH (07:30)
[2021-07-22] MEDS ORDERED: POTASSIUM CHLORIDE 20 MEQ TABLET PO PRN (09:09)
[2021-07-22] MEDS ORDERED: DEXTROSE 50% 25 GM/50 ML VIAL IV PRN (09:09)
[2021-07-22] MEDS ORDERED: ONDANSETRON 4 MG/2 ML VIAL IV PRN (09:09)
[2021-07-22] MEDS ORDERED: ALUMINUM/MAGNES/SIMETH MAX STR 30 ML UDCUP PO PRN (09:09)
[2021-07-22] MEDS ORDERED: MORPHINE 2 MG/1 ML SYRINGE IV PRN (09:09)
[2021-07-22] MEDS ORDERED: SODIUM CHLOR 0.45% KCL 20 MEQ 20 MEQ/1,000 ML BAG IV SCH (09:09)
[2021-07-22] MEDS ORDERED: MAGNESIUM SULF RIDER 4 GM/100 ML PREMIX IV PRN (09:09)
[2021-07-22] MEDS ORDERED: ACETAMINOPHEN 325 MG TABLET PO PRN (09:09)
[2021-07-22] MEDS ORDERED: GLUCAGON 1 MG VIAL IM PRN ×2 (09:09)
[2021-07-22] MEDS ORDERED: Armodafinil 250 mg Tab PO SCH (09:09)
[2021-07-22] MEDS ORDERED: MAGNESIUM HYDROXIDE SUSP 30 ML UDCUP PO PRN (09:09)
[2021-07-22] MEDS ORDERED: MAGNESIUM SULF RIDER 2 GM/50 ML PREMIX IV PRN (09:09)
[2021-07-22] MEDS ORDERED: PANTOPRAZOLE 40 MG TABLET PO SCH (09:09)
[2021-07-22] MEDS ORDERED: DEXTROSE 10% 250 ML BAG IV PRN (09:09)
[2021-07-22] MEDS: FERROUS SULFATE 325 MG TABLET PO SCH (11:19)
[2021-07-22] MEDS: ASPIRIN EC 81 MG TABLET PO SCH (11:19)
[2021-07-22] MEDS: DOCUSATE SODIUM 100 MG CAPSULE PO SCH (11:20)
[2021-07-22] MEDS: PANTOPRAZOLE 40 MG TABLET PO SCH (11:20)
[2021-07-22] MEDS: CHLORHEXIDINE 0.12% ORAL RINSE 60 ML BOTTLE SWISH/SPIT SCH ×3 (11:58→20:45)
[2021-07-22] MEDS: oxyCODONE/ACETAMINOPHEN 5-325 MG TABLET PO PRN (15:39)
[2021-07-22] MEDS: ROSUVASTATIN 20 MG TABLET PO SCH (20:35)
[2021-07-22] MEDS: ZALEPLON 5 MG CAPSULE PO PRN (23:58)
[2021-07-23 05:29] LABS: Basophils % 0.3 % (0.0-0.8); Eosinophils % 0.2 % (0.00-10.9); Hematocrit 31.7 VOL% (42.0-52.0); Hemoglobin 10.7 GM/DL (14.0-18.0); Immature Granulocytes % 0.4 %; Immature Granulocytes Absolute 0.04 #; Lymphocytes # 1.3 10*3/uL (1.4-4.0); Lymphocytes % 13.7 % (21.2-54.2); Mean Corpuscular HGB Conc 33.8 GM/DL (32-36); Mean Corpuscular Volume 87.6 FL (87-102); Mean Platelet Volume 12.1 FL (9.6-12.0); Monocytes % 10.6 % (1.7-12.7); Neutrophils % 74.8 % (38.7-73.9); Platelet Count 105 T/CUMM (130-400); Red Blood Count 3.62 MC/CUMM (3.8-5.5); Red Cell Distribution Width 13.4 % (9.3-17.3); White Blood Count 9.8 T/CUMM (4-12)
[2021-07-23] MEDS ORDERED: FUROSEMIDE 40 MG/4 ML VIAL IV ONE (06:00)
[2021-07-23 06:54] LABS: Alanine Aminotransferase 31 U/L (16-61); Albumin 2.8 G/DL (3.4-5.0); Alkaline Phosphatase 26 U/L (45-117); Aspartate Amino Transferase 43 U/L (0-37); Bilirubin,Direct < 0.100 MG/DL (0.0-0.20); Bilirubin,Indirect 0.3 MG/DL (0.0-1.0); Blood Urea Nitrogen 29 MG/DL (7-18); CKMB % 2.77 %; Calcium 8.6 MG/DL (8.5-10.1); Carbon Dioxide 28 MMOL/L (21-32); Chloride 104 MMOL/L (98-107); Estimated Glom Filtration Rate 55 ML/MIN; Glucose 130 MG/DL (74-106); Osmolality,Calculated 280.8 MOS/KG (273-304); Potassium 4.7 MMOL/L (3.5-5.1); Sodium 137 MMOL/L (136-145); Total Protein 6.1 G/DL (6.4-8.2)
[2021-07-23] MEDS: carvediloL 3.125 MG TABLET PO SCH ×2 (09:50→21:06)
[2021-07-23] MEDS: FERROUS SULFATE 325 MG TABLET PO SCH (09:50)
[2021-07-23] MEDS: ASPIRIN EC 81 MG TABLET PO SCH (09:50)
[2021-07-23] MEDS: DOCUSATE SODIUM 100 MG CAPSULE PO SCH (09:51)
[2021-07-23] MEDS: CHLORHEXIDINE 0.12% ORAL RINSE 60 ML BOTTLE SWISH/SPIT SCH ×2 (09:51→21:06)
[2021-07-23] MEDS: PANTOPRAZOLE 40 MG TABLET PO SCH (09:51)
[2021-07-23] MEDS: oxyCODONE/ACETAMINOPHEN 5-325 MG TABLET PO PRN ×3 (12:08→21:06)
[2021-07-23] MEDS: ZALEPLON 5 MG CAPSULE PO PRN (21:05)
[2021-07-23] MEDS: ROSUVASTATIN 20 MG TABLET PO SCH (21:06)
[2021-07-24 07:30] LABS: Basophils % 0.2 % (0.0-0.8); Eosinophils # 0.1 10*3/uL (0.0-0.87); Eosinophils % 1.2 % (0.00-10.9); Hematocrit 28.2 VOL% (42.0-52.0); Hemoglobin 9.5 GM/DL (14.0-18.0); Immature Granulocytes % 0.5 %; Immature Granulocytes Absolute 0.04 #; Lymphocytes # 1.1 10*3/uL (1.4-4.0); Lymphocytes % 13.8 % (21.2-54.2); Mean Corpuscular HGB Conc 33.7 GM/DL (32-36); Mean Corpuscular Volume 87.9 FL (87-102); Mean Platelet Volume 10.9 FL (9.6-12.0); Monocytes % 11.8 % (1.7-12.7); Neutrophils % 72.5 % (38.7-73.9); Platelet Count 144 T/CUMM (130-400); Red Blood Count 3.21 MC/CUMM (3.8-5.5); Red Cell Distribution Width 12.9 % (9.3-17.3)
[2021-07-24 07:51] LABS: Alanine Aminotransferase 26 U/L (16-61); Albumin 2.7 G/DL (3.4-5.0); Alkaline Phosphatase 28 U/L (45-117); Aspartate Amino Transferase 29 U/L (0-37); Bilirubin,Direct < 0.100 MG/DL (0.0-0.20); Bilirubin,Indirect 0.3 MG/DL (0.0-1.0); Blood Urea Nitrogen 29 MG/DL (7-18); Calcium 8.7 MG/DL (8.5-10.1); Carbon Dioxide 30 MMOL/L (21-32); Chloride 103 MMOL/L (98-107); Estimated Glom Filtration Rate 62 ML/MIN; Glucose 118 MG/DL (74-106); Osmolality,Calculated 281.7 MOS/KG (273-304); Potassium 3.9 MMOL/L (3.5-5.1); Sodium 138 MMOL/L (136-145); Total Protein 6.4 G/DL (6.4-8.2)
[2021-07-24] MEDS: POLYETHYLENE GLYCOL POWDER 17 GM PACK PO SCH (10:15)
[2021-07-24] MEDS: ASPIRIN EC 81 MG TABLET PO SCH (10:21)
[2021-07-24] MEDS: FERROUS SULFATE 325 MG TABLET PO SCH (10:21)
[2021-07-24] MEDS: DOCUSATE SODIUM 100 MG CAPSULE PO SCH (10:22)
[2021-07-24] MEDS: carvediloL 6.25 MG TABLET PO SCH ×2 (10:22→21:18)
[2021-07-24] MEDS: FENOFIBRATE 145 MG TABLET PO SCH (10:22)
[2021-07-24] MEDS: PANTOPRAZOLE 40 MG TABLET PO SCH (10:22)
[2021-07-24] MEDS: CHLORHEXIDINE 0.12% ORAL RINSE 60 ML BOTTLE SWISH/SPIT SCH ×2 (10:24→21:17)
[2021-07-24] MEDS: ROSUVASTATIN 20 MG TABLET PO SCH (21:18)
[2021-07-25 05:01] LABS: Basophils % 0.6 % (0.0-0.8); Eosinophils # 0.2 10*3/uL (0.0-0.87); Eosinophils % 2.8 % (0.00-10.9); Hematocrit 28.6 VOL% (42.0-52.0); Hemoglobin 9.5 GM/DL (14.0-18.0); Immature Granulocytes % 0.6 %; Immature Granulocytes Absolute 0.04 #; Lymphocytes # 1.6 10*3/uL (1.4-4.0); Lymphocytes % 21.6 % (21.2-54.2); Mean Corpuscular HGB Conc 33.2 GM/DL (32-36); Mean Platelet Volume 10.8 FL (9.6-12.0); Monocytes # 0.8 10*3/uL (0.11-0.8); Monocytes % 10.6 % (1.7-12.7); Neutrophils % 63.8 % (38.7-73.9); Platelet Count 195 T/CUMM (130-400); Red Blood Count 3.25 MC/CUMM (3.8-5.5); Red Cell Distribution Width 12.7 % (9.3-17.3); White Blood Count 7.3 T/CUMM (4-12)
[2021-07-25 05:21] LABS: Calcium 8.8 MG/DL (8.5-10.1); Osmolality,Calculated 279.8 MOS/KG (273-304)
[2021-07-25] MEDS: POLYETHYLENE GLYCOL POWDER 17 GM PACK PO SCH (09:43)
[2021-07-25] MEDS: carvediloL 6.25 MG TABLET PO SCH (09:45)
[2021-07-25] MEDS: PANTOPRAZOLE 40 MG TABLET PO SCH (09:45)
[2021-07-25] MEDS: ASPIRIN EC 81 MG TABLET PO SCH (09:45)
[2021-07-25] MEDS: FENOFIBRATE 145 MG TABLET PO SCH (09:46)
[2021-07-25] MEDS: FERROUS SULFATE 325 MG TABLET PO SCH (09:46)
[2021-07-25] MEDS: DOCUSATE SODIUM 100 MG CAPSULE PO SCH (09:46)
[2021-07-25] MEDS: CHLORHEXIDINE 0.12% ORAL RINSE 60 ML BOTTLE SWISH/SPIT SCH (09:48)
[2021-07-25 20:18] VITALS: BP 149/80
== END 2021-07-25 13:03 | disposition home health service (06) | DRG 234 ==
LOC: N.EDINP 12:47 → N.ED 12:47 → N.TELES 18:21 → SUATTDRO 07-20 07:46 → N.CVR 07-21 10:38 → N.ICU 07-22 09:30 → N.TELES 07-22 13:31
PROVIDERS: ADMIT Internal Medicine; ATTEND Internal Medicine
PROC: CLCCHCL (ICD-10-PCS; 2021-07-19 15:15)